=== PATIENT | male | born 1950 | race Caucasian/White ===

== ENCOUNTER → 2021-04-11 | Outpatient (CLI) | payer MEDICARE | LOC: RAD 14:26 | DX: R59.0 Localized enlarged lymph nodes (principal) ==

== ENCOUNTER → 2021-04-20 | Outpatient (CLI) | payer MEDICARE | LOC: RAD 14:30 | DX: R22.1 Localized swelling, mass and lump, neck (principal) | CPT/HCPCS: 15991 ==